=== PATIENT | male | born 2000 | race Caucasian/White ===

== ENCOUNTER 2019-05-25 03:32 | Emergency (ER) | payer OTHER ==
[~2019-05-25] VITALS: Ht 190.5 cm; Wt 104.5 kg
[2019-05-25 04:21] LABS: HEMATOCRIT 46.4 % (36.0-47.0); HEMOGLOBIN 15.9 g/dL (12.5-16.1); MEAN CELL VOLUME 88 fl (78-95); MEAN CORPUSCULAR HEMOGLOBIN 30 pg (26-32); MEAN CORPUSCULAR HGB CONC 34 g/dL (33-37); PLATELET COUNT 237 K/mm3 (130-400); RED BLOOD COUNT 5.27 M/mm3 (4.20-5.60); RED CELL DISTRIBUTION WIDTH 12.3 % (11.5-14.5); WHITE BLOOD COUNT 12.8 K/mm3 (4.8-10.8)
[2019-05-25 04:44] LABS: ALBUMIN 4.3 g/dL (3.5-5.0); POTASSIUM 3.9 mmol/L (3.5-5.1)
[2019-05-25 04:46] LABS: CALCIUM 9.7 mg/dL (8.3-10.5)
[2019-05-25 04:47] LABS: TOTAL PROTEIN 7.7 g/dL (6.4-8.3)
[2019-05-25 04:48] LABS: LYMPHOCYTE 4 % (20-51); MONOCYTE 10 % (1-10); NEUTROPHILS 86 % (42-75)
[2019-05-25 04:49] LABS: TOTAL BILIRUBIN 0.6 mg/dL (0.2-1.2)
[2019-05-25] MEDS ORDERED: ZOFRAN ODT4 MG PO (06:26)
[2019-05-25 06:32] LABS: URINE APPEARANCE HAZY; URINE BILIRUBIN NEGATIVE (NEGATIVE); URINE BLOOD TRACE (NEGATIVE); URINE COLOR YELLOW; URINE GLUCOSE NEGATIVE (NEGATIVE); URINE KETONE NEGATIVE (NEGATIVE); URINE LEUKOCYTE ESTERASE NEGATIVE (NEGATIVE); URINE MUCUS PRESENT (NOT PRESENT); URINE NITRATE NEGATIVE (NEGATIVE); URINE PROTEIN(semi-quant) TRACE mg/dL (NEGATIVE); URINE UROBILINOGEN NORMAL (NORMAL)
[2019-05-25 06:51] VITALS: BP 164/98
== END 2019-05-25 06:51 | disposition home or self-care (01) ==
LOC: ED 03:32
PROVIDERS: Physician Assistant
DX: K52.9 Noninfective gastroenteritis and colitis, unspecified (principal); Z90.49 Acquired absence of other specified parts of digestive tract; Z98.890 Other specified postprocedural states
CPT/HCPCS: J2405; J7030